=== PATIENT | female | born 1985 | race Caucasian/White ===

== ENCOUNTER → 2019-09-01 | Outpatient (CLI) | payer OTHER | LOC: MHCPAIN 13:12 | DX: G89.29 Other chronic pain (principal); M47.817 Spondylosis without myelopathy or radiculopathy, lumbosacral region; M53.3 Sacrococcygeal disorders, not elsewhere classified | CPT/HCPCS: G0463 ==

== ENCOUNTER → 2019-09-28 | Outpatient (CLI) | payer OTHER | LOC: MHCPAIN 10:41 | DX: M54.5 Low back pain (principal) ==

== ENCOUNTER → 2019-10-06 | Outpatient (CLI) | payer OTHER | LOC: MHCPAIN 08:43 | DX: M53.3 Sacrococcygeal disorders, not elsewhere classified (principal); G89.29 Other chronic pain | CPT/HCPCS: G0463 ==

== ENCOUNTER → 2019-11-05 | Outpatient (CLI) | payer OTHER | LOC: MHCPAIN 14:54 | DX: M54.5 Low back pain (principal) ==

== ENCOUNTER → 2019-12-03 | Outpatient (CLI) | payer OTHER | LOC: MHCPAIN 11:36 | DX: M54.5 Low back pain (principal) | CPT/HCPCS: J1100; J2250; J3010 ==

== ENCOUNTER → 2019-12-10 | Outpatient (CLI) | payer OTHER | LOC: MHCPAIN 12:17 | DX: M54.5 Low back pain (principal) | CPT/HCPCS: J1100; J2250; J2405; J3010 ==

== ENCOUNTER → 2020-04-05 | Outpatient (CLI) | payer OTHER | LOC: MHCPAIN 14:40 | DX: M47.817 Spondylosis without myelopathy or radiculopathy, lumbosacral region (principal); M53.3 Sacrococcygeal disorders, not elsewhere classified; G89.29 Other chronic pain; M54.5 Low back pain | CPT/HCPCS: G0463 ==

== ENCOUNTER → 2020-05-26 | Outpatient (CLI) | payer OTHER | LOC: MHCPAIN 14:56 | DX: M47.817 Spondylosis without myelopathy or radiculopathy, lumbosacral region (principal); M54.5 Low back pain; M53.3 Sacrococcygeal disorders, not elsewhere classified; G89.29 Other chronic pain | CPT/HCPCS: G0260; G0463; J1040; Q9967 ==

== ENCOUNTER → 2021-03-01 | Outpatient (CLI) | payer OTHER | LOC: MHCPAIN 14:45 | DX: M47.817 Spondylosis without myelopathy or radiculopathy, lumbosacral region (principal); M53.3 Sacrococcygeal disorders, not elsewhere classified; M54.5 Low back pain; G89.29 Other chronic pain | CPT/HCPCS: G0463; J1040 ==

== ENCOUNTER → 2021-03-20 | Outpatient (CLI) | payer OTHER | LOC: MHCPAIN 11:33 | DX: M47.817 Spondylosis without myelopathy or radiculopathy, lumbosacral region (principal); M54.5 Low back pain; M53.3 Sacrococcygeal disorders, not elsewhere classified | CPT/HCPCS: J1100; J2250; J2405; J3010 ==

== ENCOUNTER → 2021-03-23 | Outpatient (CLI) | payer OTHER | LOC: MHCPAIN 08:07 | DX: M47.817 Spondylosis without myelopathy or radiculopathy, lumbosacral region (principal); M53.3 Sacrococcygeal disorders, not elsewhere classified; M54.5 Low back pain | CPT/HCPCS: J1040; J1100; J2250; J2405; J3010; Q9967 ==

== ENCOUNTER → 2022-01-30 | Outpatient (CLI) | payer OTHER | LOC: MHCPAIN 14:46 | DX: M47.817 Spondylosis without myelopathy or radiculopathy, lumbosacral region (principal); M53.3 Sacrococcygeal disorders, not elsewhere classified; M54.50 Low back pain, unspecified | CPT/HCPCS: G0463 ==

== ENCOUNTER → 2022-02-19 | Outpatient (CLI) | payer OTHER | LOC: MHCPAIN 09:11 | DX: M47.817 Spondylosis without myelopathy or radiculopathy, lumbosacral region (principal); M54.50 Low back pain, unspecified; M46.1 Sacroiliitis, not elsewhere classified; M53.3 Sacrococcygeal disorders, not elsewhere classified | CPT/HCPCS: G0260; J1040; J1100; J2250; J2405; J3010; Q9967 ==